=== PATIENT | male | born 1995 | race Hispanic/Latino ===

== ENCOUNTER 2022-02-10 09:14 | Emergency (ER) | payer BC, OTHER ==
[~2022-02-10] VITALS: Ht 170.2 cm; Wt 120.2 kg
[2022-02-10] MEDS ORDERED: KETOROLAC TROMETHAMINE 60 MG/2 ML VIAL IM ONE (09:45)
[2022-02-11] MEDS ORDERED: DIAZEPAM 5 MG TAB PO SCH (09:00)
== END 2022-02-10 11:54 | disposition home or self-care (01) ==
LOC: ER 10:07
DX: S39.012A Strain of muscle, fascia and tendon of lower back, initial encounter (principal); X50.1XXA Overexertion from prolonged static or awkward postures, initial encounter; Y92.89 Other specified places as the place of occurrence of the external cause
CPT/HCPCS: 99283; J1885